=== PATIENT | female | born 1995 | race Caucasian/White ===

== ENCOUNTER → 2023-12-11 14:15 | Outpatient (REF) | payer BC, SELFPAY | LOC: WDC 14:15 | PROVIDERS: ATTENDING PHYSICIAN Physician Assistant Medical | DX: R59.0 Localized enlarged lymph nodes (principal); Z80.3 Family history of malignant neoplasm of breast | CPT/HCPCS: 76642 ==

== ENCOUNTER 2024-04-10 17:40 | Observation (INO) | payer BC, SELFPAY ==
[2024-04-10 17:49] VITALS: BMI 25.4
[2024-04-10 17:50] VITALS: BP 120/79
== END 2024-04-10 18:30 | disposition home or self-care (01) ==
LOC: LDRP 17:40
PROVIDERS: ADMITTING PHYSICIAN Obstetrics & Gynecology
DX: O36.8130 Decreased fetal movements, third trimester, not applicable or unspecified (principal); Z3A.33 33 weeks gestation of pregnancy; M06.9 Rheumatoid arthritis, unspecified; M35.00 Sjogren syndrome, unspecified
CPT/HCPCS: 59899; G0378

== ENCOUNTER → 2024-05-04 09:15 | Outpatient (REF) | payer BC, SELFPAY | LOC: PNTC 09:15 | PROVIDERS: ATTENDING PHYSICIAN Student in an Organized Health Care Education/Training Program | DX: Z34.93 Encounter for supervision of normal pregnancy, unspecified, third trimester (principal); O36.5990 Maternal care for other known or suspected poor fetal growth, unspecified trimester, not applicable or unspecified | CPT/HCPCS: 59025; 76816; 76820 ==

== ENCOUNTER 2024-05-08 19:11 | Observation (INO) | payer BC, SELFPAY ==
[2024-05-08 19:15] VITALS: BP 121/83; BMI 25.3
== END 2024-05-08 20:45 | disposition home or self-care (01) ==
LOC: LDRP 19:11
PROVIDERS: ADMITTING PHYSICIAN Obstetrics & Gynecology
DX: O36.8130 Decreased fetal movements, third trimester, not applicable or unspecified (principal); Z3A.37 37 weeks gestation of pregnancy; M06.9 Rheumatoid arthritis, unspecified; M35.00 Sjogren syndrome, unspecified; O36.5930 Maternal care for other known or suspected poor fetal growth, third trimester, not applicable or unspecified; Z28.310 Unvaccinated for COVID-19
CPT/HCPCS: 59025; 86850; 86900; 86901; G0378

== ENCOUNTER → 2024-05-11 10:03 | Outpatient (REF) | payer BC, SELFPAY | LOC: PNTC 10:03 | PROVIDERS: ATTENDING PHYSICIAN Student in an Organized Health Care Education/Training Program | DX: O36.5929 Maternal care for other known or suspected poor fetal growth, second trimester, other fetus (principal) | CPT/HCPCS: 59025; 76815; 76820 ==

== ENCOUNTER → 2024-05-18 10:28 | Outpatient (REF) | payer BC, SELFPAY | LOC: PNTC 10:28 | PROVIDERS: ATTENDING PHYSICIAN Student in an Organized Health Care Education/Training Program | DX: O36.5120 Maternal care for known or suspected placental insufficiency, second trimester, not applicable or unspecified (principal) | CPT/HCPCS: 59025; 76815; 76820 ==

== ENCOUNTER 2024-05-19 07:56 | Inpatient (IN) | payer BC, SELFPAY ==
[2024-05-19 07:59] VITALS: BP 117/85; BMI 25.3
[2024-05-19 10:10] LABS: % Basophils 0.7 % (0-2); % Eosinophils 0.8 % (0-6); % Immature Granulocytes 0.4 % (0-0.5); % Lymphocytes 14.5 % (20.5-51.1); % Monocytes 9.1 % (1.7-9.3); % Neutrophils 74.5 % (42.2-75.2); Absolute Basophils 0.1 10^3/uL (0-0.2); Absolute Eosinophils 0.1 10^3/uL (0-0.7); Absolute Lymphocytes 1.1 10^3/uL (1.2-3.4); Absolute Monocytes 0.7 10^3/uL (0.1-0.6); Absolute Neutrophils 5.5 10^3/uL (1.4-6.5); Hematocrit 37.6 % (37.0-47.0); Hemoglobin 13.4 g/dL (12.0-16.0); Mean Corp Hgb Conc. 35.6 g/dL (33.0-37.0); Mean Corpuscular Hgb 30.9 pg (27.0-31.0); Mean Corpuscular Volume 86.8 fL (81.0-99.0); Mean Platelet Volume 9.8 fL (7.4-10.4); Nucleated Red Blood Cells % 0 %; Platelet Count 291 10^3/uL (130-400); Red Blood Cell Count 4.33 10^6/uL (4.20-5.40); Red Cell Dist. Width 12.3 % (11.5-14.5); White Blood Cell Count 7.3 10^3/uL (4.8-10.8)
[2024-05-19] MEDS: PITOCIN 30 UNITS/NSS 500 ML IV (10:20)
[2024-05-19] MEDS: LR 1000 IV ×2 (12:19→20:16)
[2024-05-19] MEDS: SUBLIMAZE 100 MCG EPIDURAL (19:58)
[2024-05-19] MEDS: FENTANYL/BUPIVACAINE 100 EPIDURAL (19:59)
[2024-05-20] MEDS: FENTANYL/BUPIVACAINE 100 EPIDURAL (04:05)
[2024-05-20] MEDS: LR 1000 IV (04:06)
[2024-05-20] MEDS: PRENATAL PLUS 1 TABLET PO (15:23)
[2024-05-21] MEDS: SENOKOT-S 1 TABLET PO (04:17)
[2024-05-21] MEDS: PRENATAL PLUS 1 TABLET PO (07:53)
[2024-05-21] MEDS: MOTRIN 600 MG PO ×2 (07:53→21:07)
[2024-05-21 11:51] LABS: Syphilis/T. pallidum Ab Reflex Negative (Negative)
[2024-05-21] MEDS: TYLENOL 650 MG PO (21:08)
[2024-05-22] MEDS: TYLENOL 650 MG PO ×2 (04:59→11:11)
[2024-05-22] MEDS: MOTRIN 600 MG PO ×2 (04:59→11:11)
[2024-05-22] MEDS: SENOKOT-S 1 TABLET PO (08:09)
[2024-05-22] MEDS: PRENATAL PLUS 1 TABLET PO (08:09)
[2024-05-22] MEDS: M-M-R II 0.5 ML SC (11:12)
== END 2024-05-22 12:23 | disposition home or self-care (01) | DRG 807 ==
LOC: LDRP 07:56
PROVIDERS: ADMITTING PHYSICIAN Obstetrics & Gynecology; FAMILY PHYSICIAN Obstetrics & Gynecology
PROC: 10E0XZZ Delivery of Products of Conception, External Approach (ICD-10-PCS; 2024-05-19)
PROC: 0HQ9XZZ Repair Perineum Skin, External Approach (ICD-10-PCS; 2024-05-19)
PROC: 3E033VJ Introduction of Other Hormone into Peripheral Vein, Percutaneous Approach (ICD-10-PCS; 2024-05-19)
DX: O36.5930 Maternal care for other known or suspected poor fetal growth, third trimester, not applicable or unspecified (principal); Z37.0 Single live birth; Z3A.38 38 weeks gestation of pregnancy; O75.89 Other specified complications of labor and delivery; M35.00 Sjogren syndrome, unspecified; I73.00 Raynaud's syndrome without gangrene
CPT/HCPCS: 88307; 85014; 85018; 85025; 86780; 86850; 86900; 86901; 90707